=== PATIENT | male | born 1950 | race Caucasian/White ===

== ENCOUNTER 2017-01-17 09:11 | Emergency (ER) | payer BC ==
[2017-01-17 09:20] VITALS: PULSE 0
--- NOTE | 2017-01-17 09:29 | EMERGENCY ROOM VISIT NOTE ---
History Report prepared by Jo: Venancio Baldwin Under the Supervision of: Dr. Daryl Reddy M.D. First contact with patient: 09:13 Chief Complaint: CARDIAC ARREST Stated Complaint: CODE BLUE History of Present Illness The patient is a 66 year old male who presents to the Emergency Room unconscious. EMS states the patient was found one hour ago with shallow breathing. They report the patient turned purple upon their arrival at 0817, and the AED was place on the patient. EMS notes 4 rounds of epinephrin were administered, and no shocks were administered per the AED. They state the patient had multiple episodes of asystole were noted. The patient's states he was recently on a trip and experienced leg swelling. She reports he was short of breath when walking to the mailbox. Source of History: spouse/significant other, EMS Onset: 1 hour ago Position: other (global) Quality: other (unresponsive) Timing: constant Note: Associated symptoms: recent trip with leg swelling Review of Systems See HPI for pertinent positives & negatives. A total of 10 systems reviewed and were otherwise negative. Past Medical & Surgical Unobtainable secondary to the patient's unresponsiveness. Family History Unobtainable secondary to the patient's unresponsiveness. Social History Marital Status: Housing Status: lives with significant other Physical Exam Vital Signs Date Time Temp Pulse Resp B/P (MAP) Pulse Ox O2 Delivery O2 Flow Rate FiO2 01/17/17 09:20 0 Physical Exam GENERAL: Patient is a healthy-appearing well-nourished 66 year old male. Unresponsive. Brad device in place. Endotracheal tube in place. HEAD: Normocephalic atraumatic EYES: Ocular movements intact pupils equal and react to light OROPHARYNX mucous membranes are moist no exudates present no erythema or edema present NECK: Supple no nuchal rigidity CHEST: Good equal expansion LUNGS: Clear and equal to auscultation CARDIAC: Normal S1 and S2 ABDOMEN: Soft nontender no guarding BACK: No CVA tenderness EXTREMITIES: No pain upon palpation normal muscle strength in all groups no clubbing cyanosis or edema NEURO: Patient is following commands and answering questions appropriately. Alert and oriented x3 Cranial Nerves 2-12 grossly intact Medical Decision & Procedures ER Provider Diagnostic Interpretation: Bedside ultrasound showed no cardiac activity. ED Course 0904: Past medical records reviewed. The patient was evaluated in room B01. A complete history and physical examination was performed. 0913: The patient was pronounced . 924: I discussed the patient's case with his family. Medical Decision The patient is a 66 year old male who presents to the ED unresponsive. Differential diagnoses includes: cardiac arrest, PE, cardiac arrhythmia, hyperkalemia. This is a 66-year-old male who presents emergency department complaining of cardiac arrest. Upon arrival to emergency department pupils are fixed and dilated. The patient has been receiving CPR for the past hour and has received multiple rounds of epinephrine. He has remained in asystole. Bedside ultrasound shows no cardiac activity. Based on the amount of time that the patient has been down, time of was pronounced. I expressed my condolences to the family. Medication Reconcilliation Current Medication List: was personally reviewed by me Unobtainable secondary to the patient's unresponsiveness. Blood Pressure Screening Unobtainable secondary to the patient's unresponsiveness. Impression Primary Impression: Cardiac arrest Critical Care I have personally spent greater than 30 minutes of critical care time in the direct management of this patient. This includes bedside care, interpretation of diagnostic studies, and testing, discussion with consultants, patient, and family members, and other required patient management activities. This 30 minutes is in excess of all separately billable procedures. Scribe Attestation The scribe's documentation has been prepared under my direction and personally reviewed by me in its entirety. I confirm that the note above accurately reflects all work, treatment, procedures, and medical decision making performed by me. Departure Information Dispostion Patient Instructions My [facility]
== END 2017-01-17 09:13 | disposition expired ==
LOC: C.EDB 09:12 → C.EDA 09:13
DX: I46.9 Cardiac arrest, cause unspecified (principal)